=== PATIENT | female | born 1955 | race African-American/Black ===

== ENCOUNTER 2022-03-14 15:50 | Emergency (ER) | payer OTHER ==
[2022-03-14] MEDS ORDERED: Cyclobenzaprine 10 MG TAB ONE (16:59)
[2022-03-14] MEDS ORDERED: Ibuprofen 200 MG TAB ONE (16:59)
== END 2022-03-14 17:05 | disposition home or self-care (01) ==
LOC: BURERS 15:50
DX: S46.811A Strain of other muscles, fascia and tendons at shoulder and upper arm level, right arm, initial encounter (principal); S80.01XA Contusion of right knee, initial encounter; I10 Essential (primary) hypertension; E11.9 Type 2 diabetes mellitus without complications; V40.0XXA Car driver injured in collision with pedestrian or animal in nontraffic accident, initial encounter; Y92.411 Interstate highway as the place of occurrence of the external cause